=== PATIENT | female | born 1965 | race Caucasian/White ===

== ENCOUNTER 2021-12-30 12:46 | Emergency (ER) | payer OTHER ==
[~2021-12-30] VITALS: Ht 160 cm; Wt 77.2 kg
[2021-12-30 13:26] VITALS: BP 133/81
[2021-12-30] MEDS ORDERED: LEVO125 PO (13:32)
[2021-12-30] MEDS ORDERED: ACTEMRA IM (13:32)
[2021-12-30] MEDS ORDERED: PRED1 PO (13:32)
[2021-12-30] MEDS ORDERED: FAMO20 PO (13:32)
[2021-12-30] MEDS ORDERED: LEFL10TA19 PO (13:32)
[2021-12-30] MEDS ORDERED: KETOROLAC TROMETHAMINE 60 MG/2 ML VIAL IM ONE (14:15)
[2021-12-30] MEDS ORDERED: HYDROmorphone HCL 2 MG/ML SYRINGE IVP ONE (16:45)
[2021-12-30] MEDS ORDERED: ONDANSETRON HCL 4 MG/2 ML VIAL IVP ONE (16:45)
== END 2021-12-30 18:34 | disposition home or self-care (01) ==
LOC: EMS 12:53
DX: M79.672 Pain in left foot (principal); Z87.39 Personal history of other diseases of the musculoskeletal system and connective tissue; Z85.850 Personal history of malignant neoplasm of thyroid; Z96.649 Presence of unspecified artificial hip joint
CPT/HCPCS: 99283; 73630; 96372; J1885

== ENCOUNTER → 2023-07-08 | Emergency (ER) | payer OTHER ==
[~2023-07-08] MED LIST: ACTEMRA IM; FAMO20 PO; LEFL10TA19 PO; LEVO125 PO; PRED1 PO
== END | disposition left against medical advice (07) ==
LOC: EMS 14:10
DX: R19.7 Diarrhea, unspecified (principal); R10.9 Unspecified abdominal pain; Z53.21 Procedure and treatment not carried out due to patient leaving prior to being seen by health care provider